=== PATIENT | male | born 1945 | race Caucasian/White ===

== ENCOUNTER 2022-11-09 12:02 | Inpatient (IN) | payer OTHER ==
[2022-11-09] MEDS ORDERED: THIAMINE HCL 200 MG/2 ML VIAL IVPB ONE (12:19)
[2022-11-09 12:25] VITALS: BMI 22.8
[2022-11-09 12:33] LABS: VENOUS BASE EXCESS 0.6 mmol/L (-2-2); VENOUS O2 SATURATION 51.6 % (70-80); VENOUS PCO2 38.4 mmHg (38-52); VENOUS PH 7.428 (7.310-7.410)
[2022-11-09] MEDS ORDERED: THIAMINE HCL 200 MG/2 ML VIAL ONE (12:40)
[2022-11-09 12:44] LABS: INR 1.14 (0.83-1.09); PROTHROMBIN TIME (PATIENT) 13.2 SEC (9.7-13.0)
[2022-11-09 12:46] LABS: ACTIVATED PTT 32.1 SECONDS (25.2-36.5)
[2022-11-09] MEDS ORDERED: diazePAM CARPU-JECT 10 MG/2 ML DISP.SYRIN IVPUSH ONE (12:48)
[2022-11-09 12:52] LABS: CHLORIDE 108 mmol/L (98-107); SODIUM 139 mmol/L (136-145)
[2022-11-09 12:55] LABS: ANION GAP 4 MMOL/L (8-16); CO2 28 mmol/L (21-32); MAGNESIUM 1.8 mg/dL (1.8-2.4)
[2022-11-09 12:57] LABS: CALCIUM 9.5 mg/dL (8.5-10.1); GLUCOSE,RANDOM 122 mg/dL (74-106)
[2022-11-09 12:58] LABS: BLOOD UREA NITROGEN 16.9 mg/dL (7-18)
[2022-11-09 12:59] LABS: CREATININE 1.4 mg/dL (0.55-1.3); SGOT/AST 34 U/L (15-37)
[2022-11-09 13:00] LABS: CHOLESTEROL 136 mg/dL (50-200); TOT PROT 7.1 g/dl (6.4-8.2)
[2022-11-09 13:01] LABS: BILIRUBIN,TOTAL 0.9 mg/dL (0.2-1); LDL CHOLESTEROL (ONLY SJRH) 58 mg/dL (5-100)
[2022-11-09 13:02] LABS: ALK PHOS 66 U/L (45-117)
[2022-11-09 13:03] LABS: HDL CHOLESTEROL 72 mg/dL (40-60)
[2022-11-09] MEDS ORDERED: diazePAM CARPU-JECT 10 MG/2 ML DISP.SYRIN ONE (13:03)
[2022-11-09 13:08] LABS: ALBUMIN 3.6 g/dl (3.4-5.0)
[2022-11-09 13:12] LABS: SGPT/ALT 43 U/L (13-61)
[2022-11-09] MEDS: SODIUM CHLORIDE 1,000 ML IV SCH ×2 (13:30→22:19)
[2022-11-09 14:46] LABS: BASO % 0.6 % (0-2.0); EOS % 0.8 % (0-4.5); HEMATOCRIT 37.1 % (35.4-49); LYMPH % 11.7 % (8-40); MCH 29.7 pg (25.7-33.7); MCHC 32.4 g/dl (32.0-35.9); MEAN CELL VOLUME 91.6 fl (80-96); MONO % 10.6 % (3.8-10.2); NEUT % 76.3 % (42.8-82.8); PLATELET COUNT 100 10^3/uL (134-434); RBC 4.05 M/mm3 (4.00-5.60); RDW 13.7 % (11.9-15.9); WHITE BLOOD COUNT 6.3 K/mm3 (4.0-10.0)
[2022-11-09] MEDS ORDERED: LORazepam 2 MG/ML SDV VIAL IVPUSH PRN (15:38)
[2022-11-09] MEDS ORDERED: D5-1/2NS+10 MEQ KCL - 10 MEQ/1,000 ML INFUS.BAG IV SCH (16:00)
[2022-11-09] MEDS ORDERED: PANTOPRAZOLE 40 MG TABLET PO SCH (16:00)
[2022-11-09] MEDS ORDERED: PANTOPRAZOLE SODIUM 40 MG VIAL IVPUSH ONE (16:09)
[2022-11-09] MEDS ORDERED: PANTOPRAZOLE SODIUM 40 MG VIAL ONE (16:11)
[2022-11-10] MEDS: LEVOTHYROXINE NA 75 MCG TABLET (FP) PO SCH (06:08)
[2022-11-10 09:08] LABS: BASO % 0.5 % (0-2.0); EOS % 2.4 % (0-4.5); HEMATOCRIT 35.1 % (35.4-49); HEMOGLOBIN 11.6 GM/dL (11.7-16.9); LYMPH % 14.1 % (8-40); MCH 30.2 pg (25.7-33.7); MCHC 33.2 g/dl (32.0-35.9); MEAN CELL VOLUME 91.1 fl (80-96); MONO % 11.6 % (3.8-10.2); NEUT % 71.4 % (42.8-82.8); PLATELET COUNT 96 10^3/uL (134-434); RBC 3.85 M/mm3 (4.00-5.60); RDW 13.3 % (11.9-15.9); WHITE BLOOD COUNT 4.6 K/mm3 (4.0-10.0)
[2022-11-10 09:23] LABS: CALCIUM 8.6 mg/dL (8.5-10.1)
[2022-11-10 09:24] LABS: BLOOD UREA NITROGEN 14.4 mg/dL (7-18)
[2022-11-10 09:27] LABS: CREATININE 1.2 mg/dL (0.55-1.3)
[2022-11-10 09:28] LABS: TOT PROT 5.9 g/dl (6.4-8.2)
[2022-11-10] MEDS: ASPIRIN COATED 81 MG TABLET.EC PO SCH (09:51)
[2022-11-10] MEDS ORDERED: PANTOPRAZOLE SODIUM 40 MG VIAL IVPUSH SCH (10:00)
[2022-11-10 10:01] LABS: ALBUMIN 2.9 g/dl (3.4-5.0)
[2022-11-10] MEDS: CHOLECALCIFEROL (VIT D3) 5000 UNITS (125 MCG) CAP PO SCH (12:44)
[2022-11-10] MEDS: SODIUM CHLORIDE 1,000 ML IV SCH (13:02)
[2022-11-10] MEDS: D5-1/2NS+10 MEQ KCL - 10 MEQ/1,000 ML INFUS.BAG IV SCH (14:27)
[2022-11-10] MEDS: CYANOCOBALAMIN 1,000 MCG TABLET (FP) PO SCH (17:17)
[2022-11-10] MEDS ORDERED: ATORVASTATIN CA 20 MG TABLET (FP) PO SCH (22:00)
[2022-11-10] MEDS ORDERED: ATORVASTATIN CA 40 MG TABLET (FP) PO SCH (22:00)
[2022-11-11] MEDS: LEVOTHYROXINE NA 75 MCG TABLET (FP) PO SCH (06:06)
[2022-11-11 08:26] LABS: BASO % 0.5 % (0-2.0); EOS % 3.8 % (0-4.5); HEMATOCRIT 35.4 % (35.4-49); HEMOGLOBIN 11.5 GM/dL (11.7-16.9); LYMPH % 15.6 % (8-40); MCH 29.8 pg (25.7-33.7); MCHC 32.4 g/dl (32.0-35.9); MEAN CELL VOLUME 91.9 fl (80-96); MONO % 11.3 % (3.8-10.2); NEUT % 68.8 % (42.8-82.8); PLATELET COUNT 89 10^3/uL (134-434); RBC 3.85 M/mm3 (4.00-5.60); WHITE BLOOD COUNT 4.7 K/mm3 (4.0-10.0)
[2022-11-11] MEDS: CHOLECALCIFEROL (VIT D3) 5000 UNITS (125 MCG) CAP PO SCH (09:20)
[2022-11-11] MEDS: ASPIRIN COATED 81 MG TABLET.EC PO SCH (09:20)
[2022-11-11] MEDS: CYANOCOBALAMIN 1,000 MCG TABLET (FP) PO SCH (09:21)
[2022-11-11] MEDS: PANTOPRAZOLE 40 MG TABLET PO SCH (09:21)
[2022-11-11] MEDS: D5-1/2NS+10 MEQ KCL - 10 MEQ/1,000 ML INFUS.BAG IV SCH (11:45)
[2022-11-11] MEDS: DORZOLAMIDE 2% HCL OPHTHALMIC SOLUTION 10 ML BOTTLE OU SCH ×3 (16:10→21:05)
[2022-11-11] MEDS: ATORVASTATIN CA 40 MG TABLET (FP) PO SCH (21:05)
[2022-11-12] MEDS: LEVOTHYROXINE NA 75 MCG TABLET (FP) PO SCH (06:13)
[2022-11-12] MEDS: APIXABAN 5 MG TABLET PO SCH ×2 (06:13→09:14)
[2022-11-12 08:49] LABS: BASO % 0.7 % (0-2.0); EOS % 3.4 % (0-4.5); HEMATOCRIT 38.3 % (35.4-49); HEMOGLOBIN 12.6 GM/dL (11.7-16.9); LYMPH % 19.5 % (8-40); MCH 30.1 pg (25.7-33.7); MCHC 32.8 g/dl (32.0-35.9); MEAN CELL VOLUME 91.7 fl (80-96); MEAN PLT VOLUME 11.9 fl (7.5-11.1); NEUT % 65.4 % (42.8-82.8); PLATELET COUNT 95 10^3/uL (134-434); RBC 4.17 M/mm3 (4.00-5.60)
[2022-11-12] MEDS: CHOLECALCIFEROL (VIT D3) 5000 UNITS (125 MCG) CAP PO SCH (09:14)
[2022-11-12] MEDS: DORZOLAMIDE 2% HCL OPHTHALMIC SOLUTION 10 ML BOTTLE OU SCH ×2 (09:14→22:00)
[2022-11-12] MEDS: PANTOPRAZOLE 40 MG TABLET PO SCH (09:14)
[2022-11-12] MEDS: CYANOCOBALAMIN 1,000 MCG TABLET (FP) PO SCH (09:14)
[2022-11-12] MEDS: ASPIRIN COATED 81 MG TABLET.EC PO SCH (09:14)
[2022-11-12] MEDS: D5-1/2NS+10 MEQ KCL - 10 MEQ/1,000 ML INFUS.BAG IV SCH ×2 (09:15→11:21)
[2022-11-12 09:21] LABS: BLOOD UREA NITROGEN 10.2 mg/dL (7-18); CALCIUM 8.7 mg/dL (8.5-10.1)
[2022-11-12] MEDS ORDERED: LOSARTAN POTASSIUM 25 MG TABLET PO ONE (09:21)
[2022-11-12 09:24] LABS: CREATININE 1.3 mg/dL (0.55-1.3)
[2022-11-12] MEDS: metoPROLOL SUCCINATE 25 MG TAB.SR.24H (FP) PO SCH (10:35)
[2022-11-12] MEDS: ATORVASTATIN CA 40 MG TABLET (FP) PO SCH (21:53)
[2022-11-13] MEDS: LEVOTHYROXINE NA 75 MCG TABLET (FP) PO SCH (06:39)
[2022-11-13] MEDS: PANTOPRAZOLE 40 MG TABLET PO SCH (09:52)
[2022-11-13] MEDS: CHOLECALCIFEROL (VIT D3) 5000 UNITS (125 MCG) CAP PO SCH (09:53)
[2022-11-13] MEDS: metoPROLOL SUCCINATE 25 MG TAB.SR.24H (FP) PO SCH (09:53)
[2022-11-13] MEDS: CYANOCOBALAMIN 1,000 MCG TABLET (FP) PO SCH (09:53)
[2022-11-13] MEDS: DORZOLAMIDE 2% HCL OPHTHALMIC SOLUTION 10 ML BOTTLE OU SCH ×2 (10:11→21:40)
[2022-11-13] MEDS: APIXABAN 5 MG TABLET PO SCH ×2 (11:37→21:40)
[2022-11-13] MEDS: SACUBITRIL/VALSARTAN 24 MG-26 MG TABLET PO SCH ×2 (15:36→21:40)
[2022-11-13] MEDS: ATORVASTATIN CA 40 MG TABLET (FP) PO SCH (21:40)
[2022-11-14] MEDS: LEVOTHYROXINE NA 75 MCG TABLET (FP) PO SCH (06:15)
[2022-11-14] MEDS ORDERED: REGADENOSON 0.4 MG/5 ML PRE-FILLED SYRINGE IVPUSH ONE ×2 (09:30→09:45)
[2022-11-14] MEDS: metoPROLOL SUCCINATE 25 MG TAB.SR.24H (FP) PO SCH (10:12)
[2022-11-14] MEDS: CHOLECALCIFEROL (VIT D3) 5000 UNITS (125 MCG) CAP PO SCH (10:12)
[2022-11-14] MEDS: APIXABAN 5 MG TABLET PO SCH (10:12)
[2022-11-14] MEDS: PANTOPRAZOLE 40 MG TABLET PO SCH (10:12)
[2022-11-14] MEDS: CYANOCOBALAMIN 1,000 MCG TABLET (FP) PO SCH (10:12)
[2022-11-14] MEDS: SACUBITRIL/VALSARTAN 24 MG-26 MG TABLET PO SCH ×2 (10:12→21:10)
[2022-11-14] MEDS: DORZOLAMIDE 2% HCL OPHTHALMIC SOLUTION 10 ML BOTTLE OU SCH ×2 (10:36→21:10)
[2022-11-14 12:29] LABS: BASO % 0.8 % (0-2.0); EOS % 1.8 % (0-4.5); HEMATOCRIT 38.8 % (35.4-49); HEMOGLOBIN 12.8 GM/dL (11.7-16.9); LYMPH % 10.2 % (8-40); MCHC 32.9 g/dl (32.0-35.9); MEAN CELL VOLUME 91.1 fl (80-96); MEAN PLT VOLUME 11.2 fl (7.5-11.1); NEUT % 77.2 % (42.8-82.8); PLATELET COUNT 95 10^3/uL (134-434); RBC 4.26 M/mm3 (4.00-5.60); RDW 13.5 % (11.9-15.9); WHITE BLOOD COUNT 5.8 K/mm3 (4.0-10.0)
[2022-11-14] MEDS: SPIRONOLACTONE 25 MG TABLET PO SCH (14:12)
[2022-11-14] MEDS: ASPIRIN COATED 81 MG TABLET.EC PO SCH (16:12)
[2022-11-14] MEDS ORDERED: HEPARIN NA (PORCINE) 5,000 UNITS/ML 1ML VIAL IVPUSH PRN ×2 (16:45)
[2022-11-14] MEDS ORDERED: HEPARIN NA (PORCINE) 5,000 UNITS/ML 1ML VIAL IVPUSH ONE (16:45)
[2022-11-14] MEDS: HEPARIN SOD,PORK IN 0.45% NACL 25,000 UNITS/500 ML INFUS.BAG IVPB SCH (20:15)
[2022-11-14] MEDS: ATORVASTATIN CA 40 MG TABLET (FP) PO SCH (21:10)
[2022-11-15] MEDS: LEVOTHYROXINE NA 75 MCG TABLET (FP) PO SCH (06:14)
[2022-11-15 07:35] LABS: BASO % 0.9 % (0-2.0); EOS % 3.3 % (0-4.5); HEMATOCRIT 38.9 % (35.4-49); HEMOGLOBIN 13.1 GM/dL (11.7-16.9); MCH 30.6 pg (25.7-33.7); MCHC 33.7 g/dl (32.0-35.9); MEAN CELL VOLUME 90.8 fl (80-96); MEAN PLT VOLUME 12.2 fl (7.5-11.1); MONO % 11.2 % (3.8-10.2); NEUT % 70.6 % (42.8-82.8); PLATELET COUNT 100 10^3/uL (134-434); RBC 4.29 M/mm3 (4.00-5.60); RDW 13.3 % (11.9-15.9); WHITE BLOOD COUNT 5.4 K/mm3 (4.0-10.0)
[2022-11-15] MEDS: SPIRONOLACTONE 25 MG TABLET PO SCH (09:00)
[2022-11-15] MEDS: metoPROLOL SUCCINATE 25 MG TAB.SR.24H (FP) PO SCH (09:00)
[2022-11-15] MEDS: PANTOPRAZOLE 40 MG TABLET PO SCH (09:00)
[2022-11-15] MEDS: CYANOCOBALAMIN 1,000 MCG TABLET (FP) PO SCH (09:00)
[2022-11-15] MEDS: ASPIRIN COATED 81 MG TABLET.EC PO SCH (09:00)
[2022-11-15] MEDS: SACUBITRIL/VALSARTAN 24 MG-26 MG TABLET PO SCH ×2 (09:00→21:17)
[2022-11-15] MEDS: DORZOLAMIDE 2% HCL OPHTHALMIC SOLUTION 10 ML BOTTLE OU SCH ×2 (09:00→21:17)
[2022-11-15] MEDS: CHOLECALCIFEROL (VIT D3) 5000 UNITS (125 MCG) CAP PO SCH (09:00)
[2022-11-15] MEDS: HEPARIN SOD,PORK IN 0.45% NACL 25,000 UNITS/500 ML INFUS.BAG IVPB SCH (17:53)
[2022-11-15] MEDS: ATORVASTATIN CA 40 MG TABLET (FP) PO SCH (21:17)
[2022-11-16] MEDS: LEVOTHYROXINE NA 75 MCG TABLET (FP) PO SCH (06:08)
[2022-11-16 07:50] LABS: BASO % 0.9 % (0-2.0); EOS % 3.3 % (0-4.5); HEMATOCRIT 39.7 % (35.4-49); HEMOGLOBIN 13.1 GM/dL (11.7-16.9); LYMPH % 14.6 % (8-40); MCHC 32.9 g/dl (32.0-35.9); MEAN CELL VOLUME 91.2 fl (80-96); MEAN PLT VOLUME 12.6 fl (7.5-11.1); MONO % 12.8 % (3.8-10.2); NEUT % 68.4 % (42.8-82.8); PLATELET COUNT 101 10^3/uL (134-434); RBC 4.36 M/mm3 (4.00-5.60); RDW 13.6 % (11.9-15.9); WHITE BLOOD COUNT 4.4 K/mm3 (4.0-10.0)
[2022-11-16 08:55] LABS: BLOOD UREA NITROGEN 11.2 mg/dL (7-18); CALCIUM 9.1 mg/dL (8.5-10.1); CREATININE 1.2 mg/dL (0.55-1.3)
[2022-11-16] MEDS: SACUBITRIL/VALSARTAN 24 MG-26 MG TABLET PO SCH (09:00)
[2022-11-16] MEDS: metoPROLOL SUCCINATE 25 MG TAB.SR.24H (FP) PO SCH (09:00)
[2022-11-16] MEDS: CYANOCOBALAMIN 1,000 MCG TABLET (FP) PO SCH (09:00)
[2022-11-16] MEDS: SPIRONOLACTONE 25 MG TABLET PO SCH (09:00)
[2022-11-16] MEDS: CHOLECALCIFEROL (VIT D3) 5000 UNITS (125 MCG) CAP PO SCH (09:00)
[2022-11-16] MEDS: PANTOPRAZOLE 40 MG TABLET PO SCH (09:00)
[2022-11-16] MEDS: DORZOLAMIDE 2% HCL OPHTHALMIC SOLUTION 10 ML BOTTLE OU SCH (09:00)
[2022-11-16] MEDS: ASPIRIN COATED 81 MG TABLET.EC PO SCH (09:00)
[2022-11-16] MEDS: HEPARIN SOD,PORK IN 0.45% NACL 25,000 UNITS/500 ML INFUS.BAG IVPB SCH ×2 (09:30→18:27)
[2022-11-16 18:55] VITALS: BP 121/78; PULSE 59; RESP 16; TEMP 98.2
== END 2022-11-16 19:21 | disposition short-term general hospital (02) | DRG 65 ==
LOC: JER 12:02 → JERBED 13:36 → J4S 20:14
PROVIDERS: ADMIT Internal Medicine; ATTEND Internal Medicine
DX: I63.89 Other cerebral infarction (principal); I48.19 Other persistent atrial fibrillation; I50.20 Unspecified systolic (congestive) heart failure; I10 Essential (primary) hypertension; R47.01 Aphasia; R29.707 NIHSS score 7; E78.5 Hyperlipidemia, unspecified; I11.0 Hypertensive heart disease with heart failure; R41.82 Altered mental status, unspecified; R47.81 Slurred speech; G40.909 Epilepsy, unspecified, not intractable, without status epilepticus; E03.9 Hypothyroidism, unspecified; D69.59 Other secondary thrombocytopenia; F10.20 Alcohol dependence, uncomplicated; R53.83 Other fatigue; I25.10 Atherosclerotic heart disease of native coronary artery without angina pectoris; H40.9 Unspecified glaucoma; R26.81 Unsteadiness on feet; I34.0 Nonrheumatic mitral (valve) insufficiency; M83.8 Other adult osteomalacia
CPT/HCPCS: 0241U-QW; 36415; 70450-TC; 70496-TC; 70498-TC; 70551-TC; 71045-TC-FY; 74150-TC; 78452-TC; 80048; 80053; 80061; 80307; 82140; 82272; 82550; 82607; 82803; 82962; 83036; 83735; 84439; 84443; 84481; 84484; 85025; 85610; 85730; 86850; 86900; 86901; 93005; 93010; 93017; 93306-TC; 93880-TC; 97116-GP; 97161-GP; 99291; A9502; C9803-CS; J2785; U0003; U0005